=== PATIENT | male | born 1950 | race Caucasian/White ===

== ENCOUNTER 2017-01-12 12:45 | Emergency (ER) | payer SELFPAY ==
[~2017-01-12] VITALS: Ht 185.4 cm; Wt 83.9 kg
[2017-01-12 13:28] LABS: BASO % 0.4 % (0.0-1.0); EOS # 0.9 10*3/uL (0.0-0.4); EOS % 9.2 % (1.0-4.0); HEMATOCRIT 41.7 % (42.0-52.0); HEMOGLOBIN 13.8 g/dl (14.0-18.0); LYMPH # 1.6 10*3/uL (1.3-4.4); LYMPH % 15.9 % (27.0-41.0); MEAN CELL VOLUME 88.7 fl (80.0-94.0); MEAN CORPUSCULAR HGB 29.4 pg (27.0-31.0); MEAN CORPUSCULAR HGB CONC 33.1 g/dl (33.0-37.0); MEAN PLATELET VOLUME 9.3 fl (9.6-12.3); MONO # 0.7 10*3/uL (0.1-1.0); MONO % 7.1 % (3.0-9.0); NEUT # 6.7 10*3/uL (2.3-7.9); NEUT % 67.1 % (47.0-73.0); PLATELET COUNT AUTOMATED 384 10*3/uL (130-400); RED CELL DISTRI WIDTH 14.2 % (0-14.5)
[2017-01-12 13:38] LABS: PROTHROMBIN TIME 10.4 SECONDS (9.0-12.4)
[2017-01-12 13:43] LABS: ALBUMIN 2.7 gm/dl (3.1-4.5); ALKALINE PHOSPHATASE 126 U/L (45-117); BILIRUBIN, TOTAL 0.3 mg/dl (0.2-1.0); BUN 17 mg/dl (7-24); C-REACTIVE PROTEIN 6.55 MG/DL (0-0.3); CARBON DIOXIDE 22 mmol/L (21-32); CHLORIDE 104 mmol/L (98-107); CKMB 0.5 ng/ml (0.5-3.6); CPK 39 U/L (39-308); EST GLOM FILT AFRICAN AMERICAN > 60 ml/min; GLUCOSE 104 mg/dL (65-99); MAGNESIUM 2.1 mg/dL (1.5-2.1); POTASSIUM 4.2 mmol/L (3.5-5.1); SGOT/AST 12 IU/L (3-35); SGPT/ALT 21 U/L (12-78); SODIUM 135 mmol/L (136-145); TOTAL PROTEIN 7.4 gm/dL (6.4-8.2)
[2017-01-12 13:44] LABS: TROPONIN I < 0.015 ng/ml (<0.045)
== END 2017-01-12 17:00 | disposition short-term general hospital (02) ==
LOC: ED 12:45
PROVIDERS: Emergency Medicine
DX: I63.9 Cerebral infarction, unspecified (principal)

== ENCOUNTER 2017-04-28 11:47 | Inpatient (IN) | payer OTHER ==
[~2017-04-28] VITALS: Ht 182.9 cm; Wt 55.5 kg
--- NOTE | ~2017-04-28 | PROC NOTE ---
[place], [place] PROCEDURE NOTE NAME: BROOKS JAMES UNIT #: [id number] ROOM: 411 DOCTOR: JATINDER DIAZ BIRTHDATE: [birth year] DOS: 04/30/2017 PRIMARY PHYSICIAN: Dr. Conteh. RADIOLOGIST: ____. PREVIOUS MEDICAL HISTORY: The patient is a 66-year-old male who presented to [facility] from a [facility] due to staff's observations, the patient demonstrating cough and reduced appetite. Initial concern was for pneumonia; however, chest x-ray revealed no acute infiltrate. Cardiology service was consulted due to concern for myocardial injury. GI service also consulted given patient's history of anemia. The patient's additional medical history includes CVA, HLD, COPD, CAD, HTN, NSTEMI, chronic pain, depression, cachexia and dysphagia. The patient is previously unknown to this [facility] NUR[facility] service. GENERAL COMMENTS: The patient was oriented to self only. He remained awake, alert and cooperative throughout the evaluation, but appeared confused at times. He did not appropriately answer questions regarding his swallowing function, but noted that he had been eating, drinking infrequently. Oral mechanism exam oral facial structures innervated by cranial nerves 5, 7 and 9 through 12 were assessed. Symmetry, strength, coordination, range of motion and accuracy of upper face, labial, lingual and palatal musculature were within functional limits. Unable to assess lower face symmetry given presence of facial hair. Speed of movement was slow, suspect due to cognitive impairments. The patient is edentulous and does not wear dentures. Volitional cough was severely reduced for sharpness. Motor speech exam, the patient's conversational speech was classified by adequate respiration for sentence length utterances, mild breath phonatory quality and normal resident and prosody. Articulatory position was severely reduced with speech comprehensive ability estimated at 50% in a quiet environment. Speech AMRs were produced with rapid rate, reduced precision but adequate rhythm as some wires were uncoordinated with transposition of syllables noted. MBSS METHODS: The patient consumes the following barium impregnated consistencies, thin liquids via straw x 4, nectar thickened liquids via straw x 3, teaspoons of pureed x 2 and ____ solid x 1. 100% feeding assistance was provided. Exam was viewed in the lateral plane. ORAL PHASE: Adequate bolus acceptance with no anterior loss noted. Labial seal, adequate for straw draw. AP bolus transit was timely and adequate. Mastication consisted of an effective matching and solid bolus and was subsequently expectorated, mild to moderate lingual residue noted across consistencies. PHARYNGEAL PHASE: Initiation of the swallow response was generally timely. HLE was reduced in both the anterior and superior planes with subsequently incomplete epiglottic retroflexion. This resulted in penetration during the [place], [place] PROCEDURE NOTE NAME: BROOKS JAMES UNIT #: [id number] ROOM: [facility] DOCTOR: JATINDER DIAZ BIRTHDATE: [birth year] swallow with thin liquids. Penetration was silent and cued cough did not clear contrast. Penetrated thin liquid was then silently aspirated after the swallow, effortful swallow was not effective in reducing penetration/aspiration. The patient tolerated nectar thickened liquids and pureed without penetration/aspiration. Base of tongue to posterior pharyngeal wall contact was reduced resulting in diffuse pharyngeal residue across consistencies. Additional swallows reduced this residue. UES unremarkable. IMPRESSION: The patient presents with moderate oropharyngeal dysphagia classified by inadequate mastication, reduced HLE, and reduced base of tongue to posterior pharyngeal wall contact. Given the patient's pharyngeal weakness, silent aspiration of thin liquids was observed. Compensatory strategies were ineffective in reducing aspiration. Therefore, the patient's restrictive diet is currently dysphagia, pureed with nectar thickened liquids. His aspiration risk factors include the nature of his dysphagia, history of CVA, current mental status, dependence on others for speed assistance and diagnosis of COPD, adherence to precautions below is recommended to reduce this risk. May also consider dysphagia exercise program to promote pharyngeal strength. However, prognosis remains guarded given patient's current mental status and history of dysphagia. 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 RECOMMENDATIONS: 1. Downgrade diet to dysphagia pureed with nectar thickened liquids. 2. One to one feeding assistance. 3. Standard aspiration precautions, fully upright, awake and alert for all p.o. small bites/sips oral care at least b.i.d. 4. Consider dysphagia treatment aimed at increasing pharyngeal strength. 5. Consider communication board as appropriate to promote patient's ability to communicate wants/needs. PLAN OF CARE: We will follow up with the patient to ensure tolerance to diet, promote adherence of aspiration and to trial dysphagia treatment as he remains in house. Thank you for consulting. Please contact the Speech Pathology Department at [phone] with any questions or concerns. [place], [place] PROCEDURE NOTE NAME: JACOBBROOKS E UNIT #: [id number] ROOM: 411 DOCTOR: JATINDER DIAZ BIRTHDATE: [birth year] Jatinder Sanchez CM:PROCNOTE:PROCEDURE NOTE [id number] JATINDER DIAZ
--- NOTE | ~2017-04-28 | CON ---
[place], [place] REPORT OF CONSULTATION NAME: BROOKS JAMES UNIT #: [id number] ROOM: 415 DOCTOR: LUPE JACKSONJAMAL BIRTHDATE: [birth year] DOS: HISTORY OF PRESENT ILLNESS: A 66-year-old patient confused, has presented with difficulty in swallowing as well as he was found to have non-STEMI cardiac insults. The patient according to the nursing staff has difficulty with dysphagia. PAST MEDICAL HISTORY: COPD, coronary artery disease, cachexia, CVA, hyperlipidemia, hypertension, major depression, emaciation and protein calorie malnutrition. PAST SURGICAL HISTORY: None. SOCIAL HISTORY: Smoker, history of alcohol uncertain. FAMILY HISTORY: Noncontributory. ALLERGIES: No known medications. MEDICATIONS: Medication list has been reviewed. He has been on clopidogrel and aspirin. REVIEW OF SYSTEMS: Cannot be reliably obtained from him. He is favorably saying no to all the questions. PHYSICAL EXAMINATION: GENERAL: Reveals extremely emaciated patient, non-grown. HEENT: Head normocephalic, nontraumatic. Mouth and buccal mucosa benign. NECK: Supple, no thyromegaly. CHEST: Symmetric anatomy, COPD pattern. HEART: Normal sinus rhythm, no gallop, no murmur. ABDOMEN: Soft. No hepato-organomegaly. Bowel sounds present. EXTREMITIES: Emaciated muscles, few tattoos. NEUROLOGIC: Alert and orient. The patient cannot be assessed. LABORATORY DATA: His labs and records have been reviewed. His troponin has been elevated. His blood cultures are negative. His latest comprehensive metabolic panel, protein 5.3, albumin 1.0, alkaline phosphatase 186, GOT and GPT within normal limits. Urinalysis unremarkable. CBC: White blood cell 11, H and H of 8 and 28, platelet of 430+. Low iron at 17. The patient with elevated troponin, multiple sessions. Lactic acid of 2.7. PLAN AND DISCUSSION: Due to non-STEMI on recent and acute elevation of troponin. At this stage, we will withhold any investigation of dysphagia through endoscopy. We are going to get a swallow study done and clinical reassessment after the swallow results available. We are going to meanwhile keep him on PPI. [place], [place] REPORT OF CONSULTATION NAME: BROOKS JAMES UNIT #: [id number] ROOM: [facility] DOCTOR: JAMAL ANDRADE MD BIRTHDATE: [birth year] JAMAL ANDRADE MD CM:CONSTR:REPORT OF CONSULTATION 1349 05/01/17 0010 interface
--- NOTE | ~2017-04-28 | CON ---
[place], [place] REPORT OF CONSULTATION NAME: BROOKS JAMES UNIT #: [id number] ROOM: 415 DOCTOR: ESTELA MULLEN ED.D (PEPE) BIRTHDATE: [birth year] DOS: 04/29/2017 HISTORY OF PRESENT ILLNESS: The patient is a 66-year-old male referred for competency evaluation. At the present time, this patient is in the intensive care unit at [facility]. He is also a resident at [facility] here in [place]. His medical history is pertinent for depression, hypertension, COPD, atherosclerosis, coronary artery disease, history of CVA, chronic pain and vitamin D deficiency. This patient's medications include aspirin, Coreg, Plavix, Remeron, Lipitor, Zestril, fluoxetine and vitamin D3. This patient was awake and alert and oriented only to person. He could not tell me where he is because he does have aphasia. He still had a great deal of difficulty communicating any information about himself. It is clear that he is not competent to make informed healthcare decisions and all decision should be made by his healthcare power of application project leader or his healthcare surrogate, most likely a family member or next of kin. 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 RECOMMENDATIONS: The patient's next of kin or power of application project leader for healthcare should be making all healthcare decisions. Thank you very much for this consultation. ESTELA MULLEN ED.D CM:CONSTR:REPORT OF CONSULTATION 1437 04/29/17 2114 interface
[2017-04-28 11:57] VITALS: BP 110/60
[2017-04-28] MEDS ORDERED: ACETAMINOPHEN325 M2 PO (12:04)
[2017-04-28] MEDS ORDERED: ASPIRIN CHEWABL81 MG PO (12:05)
[2017-04-28] MEDS ORDERED: APLISOL5 TUB UNIT IC (12:05)
[2017-04-28] MEDS ORDERED: LIPITOR40 MG PO (12:06)
[2017-04-28] MEDS ORDERED: COREG3.125 MG PO (12:06)
[2017-04-28] MEDS ORDERED: REMERON15 M2 PO (12:07)
[2017-04-28] MEDS ORDERED: PLAVIX75 M1 PO (12:07)
[2017-04-28 12:25] LABS: BASO % 0.2 % (0.0-1.0); EOS # 0.4 10*3/uL (0.0-0.4); EOS % 2.7 % (1.0-4.0); HEMATOCRIT 32.9 % (42.0-52.0); HEMOGLOBIN 10.2 g/dl (14.0-18.0); LYMPH # 0.8 10*3/uL (1.3-4.4); MEAN CELL VOLUME 85.5 fl (80.0-94.0); MEAN CORPUSCULAR HGB 26.5 pg (27.0-31.0); MEAN PLATELET VOLUME 9.1 fl (9.6-12.3); MONO # 0.3 10*3/uL (0.1-1.0); MONO % 2.2 % (3.0-9.0); NEUT # 13.7 10*3/uL (2.3-7.9); PLATELET COUNT AUTOMATED 559 10*3/uL (130-400); RED BLOOD COUNT 3.85 10*6/uL (4.50-5.90); RED CELL DISTRI WIDTH 17.6 % (0-14.5); WHITE BLOOD COUNT 15.4 10*3/uL (4.8-10.8)
[2017-04-28 12:41] LABS: ALBUMIN 1.2 gm/dl (3.1-4.5); ALKALINE PHOSPHATASE 247 U/L (45-117); BUN 43 mg/dl (7-24); CHLORIDE 101 mmol/L (98-107); CREATININE 1.13 mg/dL (0.70-1.30); LIPASE 140 U/L (73-393); MAGNESIUM 2.3 mg/dL (1.5-2.1); POTASSIUM 4.3 mmol/L (3.5-5.1); SGOT/AST 48 IU/L (3-35); SGPT/ALT 43 U/L (12-78); SODIUM 135 mmol/L (136-145); TOTAL PROTEIN 6.3 gm/dL (6.4-8.2)
[2017-04-28 12:43] LABS: TROPONIN I 0.711 ng/ml (<0.045)
[2017-04-28 14:15] LABS: BILIRUBIN NEGATIVE (NEGATIVE); BLOOD NEGATIVE (NEGATIVE); CLARITY CLEAR (CLEAR); COLOR YELLOW (YELLOW); GLUCOSE NEGATIVE (NEGATIVE); KETONE NEGATIVE (NEGATIVE); LEUKO ESTERASE NEGATIVE (NEGATIVE); NITRITE NEGATIVE (NEGATIVE); PH 5.5 (5.0-9.0); SPECIFIC GRAVITY 1.025 (1.005-1.030)
[2017-04-28 14:38] LABS: BACTERIA TRACE
[2017-04-28 15:00] VITALS: BP 106/80
--- NOTE | 2017-04-28 15:10 | NUR ---
DR JASMINE NOTIFIED OF NEW CONSULT ORDER.
[2017-04-28 15:45] VITALS: BP 106/67
--- NOTE | 2017-04-28 15:45 | NUR ---
A 66, admitted to ICCU, under the services of ROGERS Noguera DO with a diagnosis of NSTEMI. Chief complaint is ARRIVAL FROM [facility] w/ c/o cough and decreased appetite. Patient arrived via stretcher from ER. Monitor applied. Initial assessment completed. Vital signs taken and recorded. ROGERS NOGUERA DO notified of admission to the unit. Orders received. See assessment for past medical history, medications and allergies. Patient oriented to unit. Clothing/patient valuable form completed. pt. stated he was unable to sign any forms and arrived w/ no monserrats GIGI CAICEDO
[2017-04-28 15:52] VITALS: BP 112/58
[2017-04-28] MEDS ORDERED: ZESTRIL2.5 MG PO (16:08)
[2017-04-28] MEDS ORDERED: LIPITOR80 MG PO (16:08)
[2017-04-28] MEDS ORDERED: FLUOXETINE40 MG PO (16:09)
[2017-04-28] MEDS ORDERED: VITAMIN D34000 UNIT PO (16:10)
--- NOTE | 2017-04-28 18:46 | NUR ---
24 HR chart check completed.
[2017-04-28 20:00] VITALS: BP 93/60
--- NOTE | 2017-04-28 21:25 | NUR ---
DR. OLIVERA IN ICCU. NOTIFIED OF CRITICAL TROPONIN. NO NEW ORDERS. PATIENT ASYMPTOMATIC.
[2017-04-28 23:54] VITALS: BP 89/53
[2017-04-29 04:30] VITALS: BP 84/52
[2017-04-29 04:36] LABS: BASO % 0.1 % (0.0-1.0); EOS # 0.5 10*3/uL (0.0-0.4); EOS % 3.7 % (1.0-4.0); HEMATOCRIT 27.7 % (42.0-52.0); HEMOGLOBIN 8.8 g/dl (14.0-18.0); LYMPH # 0.8 10*3/uL (1.3-4.4); LYMPH % 5.9 % (27.0-41.0); MEAN CORPUSCULAR HGB CONC 31.8 g/dl (33.0-37.0); MEAN PLATELET VOLUME 8.9 fl (9.6-12.3); MONO # 0.3 10*3/uL (0.1-1.0); MONO % 2.2 % (3.0-9.0); NEUT # 11.9 10*3/uL (2.3-7.9); NEUT % 87.2 % (47.0-73.0); PLATELET COUNT AUTOMATED 466 10*3/uL (130-400); RED BLOOD COUNT 3.26 10*6/uL (4.50-5.90); RED CELL DISTRI WIDTH 17.3 % (0-14.5); WHITE BLOOD COUNT 13.6 10*3/uL (4.8-10.8)
[2017-04-29 04:46] LABS: ACT PARTIAL THROMBO TIME 25.5 SECONDS (20.8-31.5); INTERNATIONAL NORM RATIO 1.2 (2.0-3.5)
[2017-04-29 04:55] LABS: CHLORIDE 107 mmol/L (98-107); POTASSIUM 4.1 mmol/L (3.5-5.1); SODIUM 137 mmol/L (136-145)
[2017-04-29 05:00] LABS: ALKALINE PHOSPHATASE 205 U/L (45-117); BUN 33 mg/dl (7-24); CREATININE 0.92 mg/dL (0.70-1.30); PHOSPHOROUS 3.3 mg/dL (2.5-4.9); SGOT/AST 33 IU/L (3-35); SGPT/ALT 31 U/L (12-78); TOTAL PROTEIN 5.3 gm/dL (6.4-8.2); TRIGLYCERIDES 77 mg/dl (<150); VLDL CHOLESTEROL 15 mg/dL (6-40)
[2017-04-29 05:08] LABS: LDL CHOLESTEROL 41 mg/dL (9-159)
[2017-04-29 05:09] LABS: CHOLESTEROL 77 mg/dL (<200); HDL CHOLESTEROL 21 mg/dl (40-60)
[2017-04-29 06:03] VITALS: BP 99/68
--- NOTE | 2017-04-29 06:13 | NUR ---
PATIENT IS A NO VOID THIS SHIFT. BLADDER SCANNED FOR 371ML. DR. OLIVEAR NOTIFIED. NEW ORDER RECEIVED FOR STRAIGHT CATH.
--- NOTE | 2017-04-29 07:14 | NUR ---
Shift chart check completed.24 HR chart check completed.
[2017-04-29] MEDS ORDERED: PRO-STAT 64 3030 M2 PO (07:30)
[2017-04-29] MEDS ORDERED: DULCOLAX10 M1 R (07:32)
[2017-04-29] MEDS ORDERED: MILK OF MA400 MG/51 PO (07:35)
[2017-04-29 07:37] LABS: VITAMIN D, 25-HYDROXY 25.6 ng/mL (30-100)
[2017-04-29 08:00] VITALS: BP 100/70; BP 111/69
--- NOTE | 2017-04-29 08:55 | NUR ---
ON ASSESSMENT PATIENT IS RESTING COMFORTABLY WITH NO VOICED COMPLAINTS. HE HAS A DEGREE OF EXPRESSIVE APHASIA, THAT HE HAS SOME REPETITIVE PHRASES AND MUMBLED SPEECH. ECHO HAS BEEN DONE AT THE BEDSIDE. DR JASMINE HAS VISITED. SEE ALL APPROPRIATE INTERVENTIONS.
--- NOTE | 2017-04-29 09:09 | NUR ---
Patient comes from [facility], will check for any return needs.
[2017-04-29 12:00] VITALS: BP 99/75
--- NOTE | 2017-04-29 12:40 | NUR ---
PT UP IN RECLINER CHAIR, WANTING TO GO BACK TO BED.
--- NOTE | 2017-04-29 13:00 | NUR ---
Pt would not eat until I got him back in bed. "No,no,no".
--- NOTE | 2017-04-29 13:34 | NUR ---
DR PEPE MULLEN NOTIFIED OF CONSULT FOR COMPETENCY EVAL.
--- NOTE | 2017-04-29 14:31 | NUR ---
DR PEPE MULLEN HAS BEEN IN TO EVALUATE PT. HE WILL DICTATE HIS CONSULTATION.
[2017-04-29 15:16] LABS: IRON 17 ug/dL (65-175); TOTAL IRON BINDING CAPACITY 152 ug/dl (250-450)
[2017-04-29 16:00] VITALS: BP 103/66
--- NOTE | 2017-04-29 16:35 | NUR ---
ATTEMPTED TO CALL DR ANDRADE'S CELL PHONE FOR NEW CONSULT. LET BRIEF VOICEMAIL.
--- NOTE | 2017-04-29 16:42 | NUR ---
DR ANDRADE CALLED ME BACK. REVIEWED PT'S HISTORY, HIS LABS AND CURRENT RX. ORDERS RECEIVED.
--- NOTE | 2017-04-29 17:27 | NUR ---
MONITOR REMOVED PER ORDER TO TRANSFER TO UN-MONITORED BED, VERIFIED WITH DR ZUÑIGA.
--- NOTE | 2017-04-29 20:02 | NUR ---
1942 RESTING IN BED WITHOUT C/O'S. HOB ELEVATED. SIDE RAILS UP X'S 2. IV FLUIDS CONT. NO DISTRESS NOTED. SPEECH IS GARBLED. SKIN W/D. RESPIRATIONS EASY,
--- NOTE | 2017-04-29 21:00 | NUR ---
PT RECEIVED IN ROOM FROM ICU. ASSESSMENT COMPLETE. PT STABLE. CALL LIGHT PROVIDED FOR ASSISTANCE.
--- NOTE | 2017-04-29 21:00 | NUR ---
TRANSFERRED TO [facility] VIA BED WITH BELONGINGS. REPORT GIVEN TO IN PT RN. IV FLUIDS CONT. URINAL AT BEDSIDE.
[2017-04-30] VITALS: BP 91/56
[2017-04-30 06:24] LABS: BASO % 0.3 % (0.0-1.0); EOS # 0.5 10*3/uL (0.0-0.4); EOS % 4.9 % (1.0-4.0); HEMATOCRIT 28.2 % (42.0-52.0); HEMOGLOBIN 8.7 g/dl (14.0-18.0); LYMPH # 0.7 10*3/uL (1.3-4.4); MEAN CELL VOLUME 85.5 fl (80.0-94.0); MEAN CORPUSCULAR HGB 26.4 pg (27.0-31.0); MEAN CORPUSCULAR HGB CONC 30.9 g/dl (33.0-37.0); MEAN PLATELET VOLUME 9.2 fl (9.6-12.3); MONO # 0.3 10*3/uL (0.1-1.0); MONO % 2.7 % (3.0-9.0); NEUT # 9.3 10*3/uL (2.3-7.9); NEUT % 85.3 % (47.0-73.0); PLATELET COUNT AUTOMATED 434 10*3/uL (130-400); RED CELL DISTRI WIDTH 17.4 % (0-14.5)
[2017-04-30 06:55] LABS: ALKALINE PHOSPHATASE 186 U/L (45-117); CHLORIDE 110 mmol/L (98-107); CREATININE 0.84 mg/dL (0.70-1.30); POTASSIUM 3.9 mmol/L (3.5-5.1); SGOT/AST 26 IU/L (3-35); SGPT/ALT 25 U/L (12-78); SODIUM 139 mmol/L (136-145); TOTAL PROTEIN 5.3 gm/dL (6.4-8.2)
[2017-04-30 06:59] LABS: BUN 20 mg/dl (7-24)
[2017-04-30 08:00] VITALS: BP 92/56
--- NOTE | 2017-04-30 10:55 | NUR ---
MEDICATED PO ORDERED PER PT REQUEST WITH [facility] FOR C/O LEFT HEEL PAIN. SEE EMAR.
--- NOTE | 2017-04-30 12:00 | NUR ---
WHEN QUESTIONED IF PAIN MEDICATIONS WERE EFFECTIVE, PT NODS HEAD "YES" DOZING INTERMITTENTLY.
--- NOTE | 2017-04-30 13:22 | NUR ---
DR ANDRADE IN TO SEE PT & MADE AWARE OF THIS RN'S CONCERN REGARDING POSSIBLE ASPIRATION RISK.
--- NOTE | 2017-04-30 13:53 | NUR ---
Patient from [facility] and can return when medically stable for discharge.
--- NOTE | 2017-04-30 14:19 | NUR ---
Nutritional Support Services Note: Pt is underweight with severe protein calorie malnutrition noted. Appetite is poor, he requires assist and encouragement to eat. He receives a regular diet as ordered with Boost po TID. Ht.6' Wt.122# BMI-16.5 underweight. Recommend diet change to regular with Boost as ordered. Will follow as needed. Ira Harkins
[2017-04-30 16:00] VITALS: BP 88/62
--- NOTE | 2017-04-30 16:00 | NUR ---
SPEECH PATHOLOGY PER PHYSICIAN ORDERS, A MODIFIED BARIUM SWALLOW STUDY WAS COMPLETED THIS AFTERNOON. THIS EXAM INCLUDED A BRIEF INTERVIEW AND ORAL MECHANISM EXAM AND AN INSTRUMENTAL SWALLOWING EVALUATION. IN BRIEF, PATIENT DEMONSTRATED REDUCED HLE RESULTING IN PENETRATION AND ASPIRATION OF THIN LIQUIDS. PENETRATION/ASPIRATION WAS SILENT AND CUED COUGH DID NOT CLEAR. PATIENT TOLERATED NECTAR-THICKENED LIQUIDS AND PUREE WITHOUT ASPIRATION. COARSE SOLIDS WERE ALSO TRIALED. PATIENT'S MASTICATION OF SOLIDS WAS INEFFECTIVE AND HE SUBSEQUENTLY EXPECTORATED UNCHEWED BOLUS. IMPRESSIONS: PATIENT PRESENTS WITH MODERATE OROPHARYNGEAL DYSPHAGIA C/B INEFFECTIVE MASTICATION OF SOLIDS, REDUCED HLE RESULTING IN ASPIRATION OF THIN LIQUIDS, AND REDUCED BOT-PPW CONTACT RESULTING IN DIFFUSE PHARYNGEAL RESIDUE. GIVEN THESE FINDINGS, PATIENT'S LEAST RESTRICTIVE DIET IS CURRENTLY PUREED FOODS WITH NECTAR-THICKENED LIQUIDS. WILL CONSIDER DYSPHAGIA TREATMENT TARGETING IMPROVING STRENGTH OF PHARYNGEAL MUSCULATURE; HOWEVER, PROGNOSIS REMAINS GUARDED GIVEN CURRENT COGNTIIVE STATUS AND HISTORY OF DYSPHAGIA. RECOMMENDATIONS: 1. DOWNGRADE DIET TO PUREED FOODS WITH NECTAR-THICKENED LIQUIDS. 2. 1:1 FEEDING ASSISTANCE 3. STANDARD ASPIRATION PRECAUTIONS: FULLY UPRIGHT, AWAKE, AND ALERT FOR ALL PO, SMALL BITES/SIPS, ORAL CARE AT LEAST BID. 4. CONSIDER DYSPHAGIA EXERCISES TARGETING IMPROVING PHARYNGEAL STRENGTH; HOWEVER PROGNOSIS REMAINS GUARDED GIVEN PATIENT'S CURRENT COGNITIVE STATUS AND HISTORY OF DYSPHAGIA. POC: WILL FOLLOW-UP WITH PATIENT TO ENSURE TOLERANCE TO DIET, PROMOTE ASPIRATION PRECAUTIONS, AND TRIAL DYSPAHGIA TREATMENT. FULL DICTATED REPORT TO FOLLOW. THANK YOU FOR THIS REFERRAL. JATINDER NAILS, [facility]-INVENTORY CONTROL CLERK
--- NOTE | 2017-04-30 16:15 | NUR ---
VANE SIMS NURSE DIRECTOR CALLED TO ARRANGE A PEER TO PEER AND THE INSURANCE COMPANY SAID THE DATES DID NOT MATCH AND THE PATIENT WOULD HAVE TO CALL TO FIX THE ISSUE IF THEY WERE WRONG. THE PATIENT HAS BEEN DEEMED INCOMPETENT TO MAKE DECISIONS AT THIS TIME SO THE SON JULIO GARRISON WAS CALLED AT [phone]. HE VERIFIED THAT WE HAD THE CORRECT INFORMATION (1950) AND THAT THE INSURANCE COMPANY HAS HIM LISTED 54. HE ALSO SAID THAT HE HAS ALREADY TRIED TO CORRECT THIS BUT THAT HE WILL CALL THEM AGAIN [facility] TO TRY AND GET THEM TO CORRECT IT. SHAWNA SIMS RN, NURSE DIRECTOR FOR [facility]
--- NOTE | 2017-04-30 17:13 | NUR ---
DR ZUÑIGA NOTIFIED OF BARIUM SWALLOW RESULTS, NEW ORDERS RECEIVED.
--- NOTE | 2017-04-30 19:02 | NUR ---
REPOSITIONED FOR COMFORT & TO RELIEVE PRESSURE AREAS. BEDALARM FOR PT SAFETY.
[2017-04-30 20:00] VITALS: BP 85/50
--- NOTE | 2017-04-30 20:00 | NUR ---
RESTING IN BED. SPEECH DIFFICULTY TO UNDERSTAND. IV FLUIDS INFUSING INTO LEFT ARM WITHOUT DIFFICULTY; SITE ASYMPTOMATIC. LUNGS DIMINISHED BILATERALLY WITH AN OCCASIONAL DRY COUGH NOTED AT THIS TIME. NO DISTRESS NOTED; WILL CONTINUE TO MONITOR. CALL LIGHT WITHIN REACH.
[2017-05-01] VITALS: BP 99/58
[2017-05-01 06:14] LABS: BASO % 0.2 % (0.0-1.0); EOS # 0.6 10*3/uL (0.0-0.4); HEMATOCRIT 27.1 % (42.0-52.0); HEMOGLOBIN 8.3 g/dl (14.0-18.0); LYMPH # 0.7 10*3/uL (1.3-4.4); LYMPH % 7.4 % (27.0-41.0); MEAN CELL VOLUME 85.8 fl (80.0-94.0); MEAN CORPUSCULAR HGB 26.3 pg (27.0-31.0); MEAN CORPUSCULAR HGB CONC 30.6 g/dl (33.0-37.0); MEAN PLATELET VOLUME 10.4 fl (9.6-12.3); MONO # 0.3 10*3/uL (0.1-1.0); MONO % 3.1 % (3.0-9.0); NEUT # 7.9 10*3/uL (2.3-7.9); NEUT % 82.8 % (47.0-73.0); PLATELET COUNT AUTOMATED 463 10*3/uL (130-400); RED BLOOD COUNT 3.16 10*6/uL (4.50-5.90); RED CELL DISTRI WIDTH 17.6 % (0-14.5); WHITE BLOOD COUNT 9.5 10*3/uL (4.8-10.8)
[2017-05-01 06:50] LABS: BUN 17 mg/dl (7-24); CHLORIDE 111 mmol/L (98-107); POTASSIUM 3.8 mmol/L (3.5-5.1); SODIUM 138 mmol/L (136-145)
[2017-05-01 08:00] VITALS: BP 88/54
[2017-05-01] MEDS ORDERED: FEROSUL325 MG PO (11:43)
[2017-05-01 12:00] VITALS: BP 111/72
[2017-05-01 16:00] VITALS: BP 101/73
[2017-05-01 16:09] LABS: LEGIONELLA URINARY ANTIGEN Negative (Negative)
[2017-05-01 20:00] VITALS: BP 98/60
--- NOTE | 2017-05-01 21:34 | NUR ---
MEDICATED WITH TYLENOL FOR ELEVATED TEMPERATURE. PT. REFUSES TO TAKE ANY OTHER PO MEDICATIONS.
[2017-05-02] VITALS: BP 93/52
--- NOTE | 2017-05-02 | NUR ---
TYLENOL GIVEN EARLIER EFFECTIVE.
[2017-05-02 06:36] LABS: BASO % 0.3 % (0.0-1.0); EOS # 0.5 10*3/uL (0.0-0.4); HEMATOCRIT 27.6 % (42.0-52.0); HEMOGLOBIN 8.7 g/dl (14.0-18.0); LYMPH # 0.6 10*3/uL (1.3-4.4); LYMPH % 5.1 % (27.0-41.0); MEAN CELL VOLUME 85.2 fl (80.0-94.0); MEAN CORPUSCULAR HGB 26.9 pg (27.0-31.0); MEAN CORPUSCULAR HGB CONC 31.5 g/dl (33.0-37.0); MONO # 0.3 10*3/uL (0.1-1.0); MONO % 2.5 % (3.0-9.0); NEUT # 9.4 10*3/uL (2.3-7.9); NEUT % 86.4 % (47.0-73.0); PLATELET COUNT AUTOMATED 435 10*3/uL (130-400); RED BLOOD COUNT 3.24 10*6/uL (4.50-5.90); RED CELL DISTRI WIDTH 17.5 % (0-14.5); WHITE BLOOD COUNT 10.8 10*3/uL (4.8-10.8)
[2017-05-02 07:10] LABS: BUN 12 mg/dl (7-24); CHLORIDE 111 mmol/L (98-107); CREATININE 0.71 mg/dL (0.70-1.30); POTASSIUM 3.6 mmol/L (3.5-5.1); SODIUM 138 mmol/L (136-145)
[2017-05-02 08:00] VITALS: BP 112/74
[2017-05-02] MEDS ORDERED: LEVAQUIN500 M2 PO (09:02)
--- NOTE | 2017-05-02 09:46 | NUR ---
REFUSING AM MEDICATIONS AND PICTURES OF WOUND. TOOL CRIB ATTENDANT AWARE.
[2017-05-02 12:49] LABS: CKMB 1.9 ng/ml (0.5-3.6)
--- NOTE | 2017-05-02 12:55 | NUR ---
[facility] Discharge instructions reviewed with patient/family. Patient receptive and verbalizes understanding. Follow-up care arranged. Written instructions given to patient/family. ARMAND MORGAN
== END 2017-05-02 12:55 | disposition home or self-care (01) | DRG 280 ==
LOC: ED 11:47 → ICCU 14:26 → EDHOLD 14:26 → ICCU 14:29 → 4E 04-29 20:50
PROVIDERS: Internal Medicine; Internal Medicine Cardiovascular Disease; Internal Medicine Nephrology; ADMIT Internal Medicine
PROC: BD1BYZZ Fluoroscopy of Mouth/Oropharynx using Other Contrast (ICD-10-PCS; principal; 2017-04-30)
DX: I21.4 Non-ST elevation (NSTEMI) myocardial infarction (principal); J15.6 Pneumonia due to other Gram-negative bacteria; E43 Unspecified severe protein-calorie malnutrition; E87.1 Hypo-osmolality and hyponatremia; R13.10 Dysphagia, unspecified; J44.0 Chronic obstructive pulmonary disease with (acute) lower respiratory infection; F01.50 Vascular dementia, unspecified severity, without behavioral disturbance, psychotic disturbance, mood disturbance, and anxiety; F33.9 Major depressive disorder, recurrent, unspecified; Z68.1 Body mass index [BMI] 19.9 or less, adult; E86.0 Dehydration; D64.9 Anemia, unspecified; D47.3 Essential (hemorrhagic) thrombocythemia; R73.9 Hyperglycemia, unspecified; E78.5 Hyperlipidemia, unspecified; G89.29 Other chronic pain; I10 Essential (primary) hypertension; I25.10 Atherosclerotic heart disease of native coronary artery without angina pectoris; J44.9 Chronic obstructive pulmonary disease, unspecified; Z79.82 Long term (current) use of aspirin; Z79.899 Other long term (current) drug therapy; I69.319 Unspecified symptoms and signs involving cognitive functions following cerebral infarction

== ENCOUNTER 2017-05-05 11:16 | Inpatient (IN) | payer OTHER ==
[~2017-05-05] VITALS: Ht 172.7 cm; Wt 56.9 kg
--- NOTE | ~2017-05-05 | ST ---
[place], [place] EXERCISE STRESS TEST REPORT [id number] UNIT #: [id number] ROOM: 422 DOCTOR: JOHN YEAGER MD BIRTHDATE: [birth year] DOS: 05/06/2017 REFERRING PHYSICIAN: Dr. Panchal. INDICATION: Abnormal troponin, preoperative, for stratification. The patient underwent standard protocol Lexiscan stress EKG. The patient's baseline EKG shows normal sinus with nonspecific ST-T wave changes. The patient tolerated the procedure well. The patient's baseline heart rate was 86 with blood pressure was 118/80. The patient's peak heart rate shows 97 with a blood pressure 102/70. The patient had no overt chest pain or anginal symptoms. The patient had no EKG changes. No arrhythmias. SUMMARY OF FINDINGS: Unremarkable Lexiscan stress EKG. Please see separate report for perfusion scan results. JOHN YEAGER MD CM:STRESS:EXERCISE STRESS TEST REPORT [id number] JOHN YEAGER MD
--- NOTE | ~2017-05-05 | O ---
[place], [place] OPERATIVE NOTE NAME: BROOKS JAMES UNIT #: [id number] ROOM: 422 DOCTOR: JAMAL ANDRADE MD BIRTHDATE: [birth year] DOS: HISTORY OF PRESENT ILLNESS: A 66-year-old patient who presented with chief complaint of extracted hematemesis, upper GI bleed from skilled nursing. The patient had to be admitted for evaluation. The patient had a panel of workup done and his H and H periodically reassessed and H and H of 9 and 29 was his average H and H. His latest H and H has been 9 and 29. Again, platelet function assay was reviewed. Latest H and H has been stable. He has been observed on the floor with concern of hematemesis and aspirin kept on hold. Platelet function test has been assessed. PAST MEDICAL HISTORY: Dysphagia, CVA, hyperlipidemia, hypertension, non-STEMI myocardial infarction, protein malnutrition. PAST SURGICAL HISTORY: None. SOCIAL HISTORY: Smoker, nonalcohol consumer. FAMILY HISTORY: Noncontributory. ALLERGIES: No known. MEDICATIONS: Medication list has been reviewed including clopidogrel and aspirin. PROCEDURE: Today's procedure part of investigation of hematemesis is panendoscopy plus photographic series. PREMEDICATION: Versed and Diprivan. SCOPE: Olympus forward-viewing gastroscope Q10 video. REPORT: After putting the patient in left lateral position and application of lubricant to the scope, the scope was introduced. Thereafter, under direct visualization, I advanced through the length of esophagus without difficulty. Small hiatal hernia was noticed. Gastric pouch was entered. Mild gastritis was seen. Duodenal bulb, second and third part within normal limit. No active bleeding seen. The patient extubated, tolerated the procedure well. IMPRESSION: Gastritis, small hiatal hernia. PLAN AND DISCUSSION: Continuation with Protonix 40 mg daily. On the other hand, resumption of feeding and he has history of non-STEMI myocardial infarction. Therefore, he needs to be back on his anticoagulants and antiplatelets. We will proceed with the above. [place], [place] OPERATIVE NOTE NAME: BROOKS JAMES UNIT #: [id number] ROOM: 422 DOCTOR: JAMAL ANDRADE MD BIRTHDATE: [birth year] JAMAL ANDRADE MD CM:MODESTA:OPERATIVE NOTE 1524 2101 JAMAL ANDRADE MD 05/07/17 2252 interface
--- NOTE | ~2017-05-05 | PR ---
[place], [place] PROGRESS NOTE NAME: [id number] UNIT #: [id number] ROOM: 422 DOCTOR: NEO JASMINE MD BIRTHDATE: [birth year] DOS: 05/10/2017 SUBJECTIVE: The patient was seen at his bedside today 05/10/2017 for followup of his elevated troponin levels and abnormal stress test. He is a 66-year-old man who is a poor historian. He is a long term resident. He presented to the hospital because of coffee-ground emesis and a GI bleed. In the emergency room, his electrocardiogram showed no acute changes, but his troponins did rise to a peak of 0.626. He was felt to have a type 2 myocardial injury from his GI bleeding. A pharmacologic myocardial perfusion study on 05/06/2017 showed evidence for a small mildly reversible defect in the inferior wall consistent with ischemia, ejection fraction was 70%. It was felt that he did show signs of coronary artery disease, but that his prognosis was good and that he could be treated medically. He subsequently did undergo endoscopy without cardiac complications. He is being treated medically for gastritis and small hiatal hernia. He is eating well now and has no further complaints. As I entered his room today, he was coughing, but told me that he otherwise felt well. PHYSICAL EXAMINATION: VITAL SIGNS: Today, his pulse is 78 and regular, blood pressure is 118/73. He is afebrile. He weighs 56.9 kg and has a body mass index of 19.1. NECK: Supple. He has no jugular distention. Carotids are full without bruits. LUNGS: Respirations are unlabored at rest, but he does have marked expiratory prolongation with scattered wheezes bilaterally. He has no presacral edema. HEART: Has a regular rhythm with an S4 gallop, but no S3 or murmur. The PMI is not displaced. ABDOMEN: Soft and normally active. EXTREMITIES: Showed no edema. Pedal pulses are diminished, but palpable. IMPRESSION: 1. Upper gastrointestinal bleed due to gastritis and hiatal hernia. The patient is being managed medically. 2. Non-ST elevation myocardial infarction. 3. Abnormal stress test demonstrating a small area of inferior ischemia. The patient is being treated medically. 4. Mental status changes. The patient does have a history of a stroke in December 2016. 5. History of hypertension. 6. History of major depressive disorder. 7. Malnutrition. 8. Remote history of cigarette abuse. PLAN: No other cardiac workup is planned at this time. The patient appears to be stable on his current regimen, which includes amongst other drugs, aspirin, Plavix, carvedilol 3.125 mg b.i.d., atorvastatin 80 mg daily. We will sign off his care for now, but remain available to see him as needed. I thank the hospitalist physicians for asking our advice regarding his care. [place], [place] PROGRESS NOTE NAME: BROOKS JAMES UNIT #: [id number] ROOM: 422 DOCTOR: NEO JASMINE MD BIRTHDATE: [birth year] NEO JASMINE MD CM:[id number] NEO JASMINE MD 05/10/17 1553 interface
[~2017-05-05 11:16] MED LIST: ACETAMINOPHEN325 M2 PO; APLISOL5 TUB UNIT IC; ASPIRIN CHEWABL81 MG PO; COREG3.125 MG PO; DULCOLAX10 M1 R; FEROSUL325 MG PO; FLUOXETINE40 MG PO; LEVAQUIN500 M2 PO; LIPITOR40 MG PO; LIPITOR80 MG PO; MILK OF MA400 MG/51 PO; PLAVIX75 M1 PO; PRO-STAT 64 3030 M2 PO; REMERON15 M2 PO; VITAMIN D34000 UNIT PO; ZESTRIL2.5 MG PO
[2017-05-05 11:42] VITALS: BP 155/74
--- NOTE | 2017-05-05 11:47 | NUR ---
PATIENT HAS BANDAID NOTED TO LEFT UPPER ARM.
[2017-05-05 11:58] LABS: BASO % 0.2 % (0.0-1.0); EOS # 0.5 10*3/uL (0.0-0.4); EOS % 5.1 % (1.0-4.0); HEMATOCRIT 29.1 % (42.0-52.0); HEMOGLOBIN 9.2 g/dl (14.0-18.0); LYMPH # 0.9 10*3/uL (1.3-4.4); LYMPH % 9.6 % (27.0-41.0); MEAN CELL VOLUME 83.4 fl (80.0-94.0); MEAN CORPUSCULAR HGB 26.4 pg (27.0-31.0); MEAN CORPUSCULAR HGB CONC 31.6 g/dl (33.0-37.0); MEAN PLATELET VOLUME 9.3 fl (9.6-12.3); MONO # 0.3 10*3/uL (0.1-1.0); NEUT # 7.9 10*3/uL (2.3-7.9); NEUT % 81.7 % (47.0-73.0); PLATELET COUNT AUTOMATED 425 10*3/uL (130-400); RED BLOOD COUNT 3.49 10*6/uL (4.50-5.90); WHITE BLOOD COUNT 9.6 10*3/uL (4.8-10.8)
[2017-05-05 12:07] LABS: INTERNATIONAL NORM RATIO 1.4 (2.0-3.5)
[2017-05-05 12:13] LABS: ALKALINE PHOSPHATASE 207 U/L (45-117); BUN 15 mg/dl (7-24); CHLORIDE 105 mmol/L (98-107); CREATININE 0.72 mg/dL (0.70-1.30); LIPASE 79 U/L (73-393); POTASSIUM 3.5 mmol/L (3.5-5.1); SGOT/AST 23 IU/L (3-35); SGPT/ALT 18 U/L (12-78); SODIUM 137 mmol/L (136-145); TOTAL PROTEIN 5.5 gm/dL (6.4-8.2)
--- NOTE | 2017-05-05 12:45 | NUR ---
PT LAYING IN BED SLEEPING AROUSES EASILY. RESPS EASY NONLABORED. VSS. WILL CONTINUE TO MONITOR.
[2017-05-05 13:56] VITALS: BP 108/68
--- NOTE | 2017-05-05 14:03 | NUR ---
REPORT CALLED TO TARA RN AT THIS TIME. PATIENT TAKEN TO 4TH FLOOR AT THIS TIME BY THIS NURSE.
--- NOTE | 2017-05-05 14:12 | NUR ---
TARA RN AT BEDSIDE WITH PATIENT AT THIS TIME.
[2017-05-05 14:35] VITALS: BP 154/91
--- NOTE | 2017-05-05 14:45 | NUR ---
TAZ IN ROOM TO SEE PTMyke
--- NOTE | 2017-05-05 15:58 | NUR ---
CALLED TAZ GARVEY FOR CRITICAL TROPONIN AND NOTIFED HOME MEDS ARE VERIFIED AND NEED WOUND CARE ORDER FOR SKIN TEAR.
[2017-05-05 16:00] VITALS: BP 115/71
[2017-05-05 16:10] VITALS: BP 136/58
--- NOTE | 2017-05-05 16:25 | NUR ---
DR. ANDRADE MADE AWARE OF CONSULT. ORDERS REVIEWED AND VERIFIED.
[2017-05-05 18:10] LABS: HEMATOCRIT 32.4 % (42.0-52.0); HEMOGLOBIN 10.2 g/dl (14.0-18.0)
--- NOTE | 2017-05-05 18:30 | NUR ---
CALLED AND LEFT A MESSAGE WITH DR. ANDRADE WITH RESULTS OF H+H.
--- NOTE | 2017-05-05 18:38 | NUR ---
DR. GARVEY NOTIFIED ABOUT THE CRITICAL TROPONIN RESULT. NO NEW ORDERS AT THIS TIME.
--- NOTE | 2017-05-05 18:51 | NUR ---
PATIENT IS RESTING COMFORTABLY IN BED. PATIENT DENIES ANY PAIN OR DISCOMFORT. PATIENT HAS THE BED ALARM ACTIVATED AND IN LOWEST POSITION, CALL LIGHT IS WITHIN . SEE SHIFT ASSESSMENT.
--- NOTE | 2017-05-05 19:14 | NUR ---
DR. ANDRADE NOTIFIED OF 1800 H&H RESULTS. CONTACT LUPE IN THE MORNING WITH H&H RESULTS.
[2017-05-05 20:00] VITALS: BP 106/69
[2017-05-06] VITALS: BP 109/65
--- NOTE | 2017-05-06 | NUR ---
RESTING IN BED; AROUSES EASILY FOR ASSESSMENT. IV FLUIDS INFUSING INTO RIGHT ARM WITHOUT DIFFICULTY. NO DISTRESS NOTED. CALL LIGHT WITHIN REACH.
[2017-05-06 00:19] LABS: HEMATOCRIT 28.3 % (42.0-52.0)
--- NOTE | 2017-05-06 06:00 | NUR ---
RESTING IN BED WITH EYES CLOSED. CALL LIGHT WITHIN REACH.
[2017-05-06 06:21] LABS: BASO % 0.2 % (0.0-1.0); EOS # 0.5 10*3/uL (0.0-0.4); EOS % 4.1 % (1.0-4.0); HEMATOCRIT 29.6 % (42.0-52.0); HEMOGLOBIN 9.4 g/dl (14.0-18.0); LYMPH # 0.7 10*3/uL (1.3-4.4); LYMPH % 5.7 % (27.0-41.0); MEAN CELL VOLUME 83.6 fl (80.0-94.0); MEAN CORPUSCULAR HGB 26.6 pg (27.0-31.0); MEAN CORPUSCULAR HGB CONC 31.8 g/dl (33.0-37.0); MEAN PLATELET VOLUME 9.4 fl (9.6-12.3); MONO # 0.4 10*3/uL (0.1-1.0); MONO % 3.4 % (3.0-9.0); NEUT % 86.2 % (47.0-73.0); PLATELET COUNT AUTOMATED 437 10*3/uL (130-400); RED BLOOD COUNT 3.54 10*6/uL (4.50-5.90); RED CELL DISTRI WIDTH 18.1 % (0-14.5); WHITE BLOOD COUNT 11.6 10*3/uL (4.8-10.8)
[2017-05-06 06:33] LABS: ALKALINE PHOSPHATASE 190 U/L (45-117); BUN 16 mg/dl (7-24); CHLORIDE 107 mmol/L (98-107); CREATININE 0.68 mg/dL (0.70-1.30); PHOSPHOROUS 3.5 mg/dL (2.5-4.9); POTASSIUM 3.6 mmol/L (3.5-5.1); SGOT/AST 24 IU/L (3-35); SGPT/ALT 18 U/L (12-78); SODIUM 138 mmol/L (136-145); TOTAL PROTEIN 5.4 gm/dL (6.4-8.2)
--- NOTE | 2017-05-06 07:45 | NUR ---
DR. ANDRADE CALLED WITH [facility]. IN MEETING & WOULD LIKE FOR RN TO CALL BACK IN 15 MINUTES; PASSED ON TO DAYLIGHT RN.
[2017-05-06 08:00] VITALS: BP 116/76
--- NOTE | 2017-05-06 08:23 | NUR ---
SPOKE TO DR ANDRADE REGARDING [facility]. PT TO HAVE EGD 05/07/17 AND NPO AT MIDNIGHT TONIGHT.
--- NOTE | 2017-05-06 08:46 | NUR ---
Patient comes from [facility] stay and will require precert to return. OT order is in, will need PT order for precert requirement
--- NOTE | 2017-05-06 09:31 | NUR ---
OFFICE STAFF WAS NOTIFIED OF DR. YEAGER CONSULT. RESPONSE OF NOTIFICATION WAS OK I WILL GIVE IT TO HIM. JOSE MORTON
--- NOTE | 2017-05-06 10:07 | NUR ---
PHYSICAL THERAPY Physical Therapy Evaluation completed this date. See eval document for further details. Will begin PT intervention to address the impairments of muscle weakness, decreased functional mobility I, and inability to ambulate. Recommend d/c back to SNF [place] [address] based on chart review and PT eval. Aisha Herman, PT
--- NOTE | 2017-05-06 10:22 | NUR ---
Occupational Therapy evaluation completed this date on 4 with full eval to follow. Precautions include fall risk, aphasic, resistive of movement, NPO for EGD today, high complexity level 53885, dysphagia; nectar thick liquids, bed alarm, resistive to movement out of bed. Recommend OT per pOC and SNF upon d/t to maximize functional mobility and ADLs. Thank you for this referral Miriam Maciel OTR/Renato
--- NOTE | 2017-05-06 11:23 | NUR ---
OBTAINED CONSENT FOR EGD FROM SON OVER THE PHONE AND TAYE YORK RN WITNESSED.
[2017-05-06 11:54] LABS: HEMATOCRIT 30.8 % (42.0-52.0); HEMOGLOBIN 9.8 g/dl (14.0-18.0)
--- NOTE | 2017-05-06 11:57 | NUR ---
SKIN TEAR ORDER WAS PUT IN A MESSAGE. SO I PUT IN THE SKIN TEAR WOUND ORDER TO CLARIFY IT.
[2017-05-06 12:00] VITALS: BP 111/73
--- NOTE | 2017-05-06 13:30 | NUR ---
INFORMED CONSENT OBTAINED BY TELEPHONE PERMISSION FROM SON WHO IS POA. EXPLAINED LEXISCAN PROTOCOL TO PT. PT ABLE TO ANSWER YES AND NO TO QUESTIONS. RESTING EKG NSR WITH A RESTING HR OF 86 WITH BP OF 118/80. LUNGS CLEAR WITH SPO2 OF 95% ON ROOM AIR. PT COMPLETED A 1:00 LEXISCAN PROTOCOL RECEIVING LEXISCAN0.4 MG IV OVER 10 SECONDS. ANSWERED NO TO QUESTIONS IF ANY CHEST PAIN, NAUSEA OR SHORTNESS OF BREATH. HAD NO EKG CHANGES. HAD A PEAK HR OF 97 WITH BP OF 102/70. LAST RECOVERY HR OF 94 WITH BP OF 102/62. AWAITING SCANNING IN STABLE CONDITION.
--- NOTE | 2017-05-06 14:18 | NUR ---
Patient clincals faxed to [facility] to start precert. Waiting on auth
--- NOTE | 2017-05-06 14:33 | NUR ---
PHYSICAL THERAPY Patient was not in his room at 2:36 pm. Julius Thomason PTA
[2017-05-06 16:00] VITALS: BP 161/83
[2017-05-06 19:29] LABS: HEMATOCRIT 31.9 % (42.0-52.0); HEMOGLOBIN 10.1 g/dl (14.0-18.0)
[2017-05-06 20:00] VITALS: BP 128/89
--- NOTE | 2017-05-06 20:00 | NUR ---
PT. INCONTINENT OF DARK TARRY STOOL. VON CARE PROVIDED BY THIS RN & PA.
--- NOTE | 2017-05-06 22:30 | NUR ---
PT. INCONTINENT OF URINE; COMPLETE BED CHANGE DONE BY RN & PA.
[2017-05-07] VITALS (8 sets, daily range): BP systolic 111–135; BP diastolic 58–89
[2017-05-07 00:17] LABS: HEMOGLOBIN 9.1 g/dl (14.0-18.0)
--- NOTE | 2017-05-07 00:40 | NUR ---
RESTING IN BED WITH EYES CLOSED. IV FLUIDS CONTINUE TO INFUSE WITHOUT DIFFICULTY; SITE ASYMPTOMATIC. CALL LIGHT WITHIN REACH.
--- NOTE | 2017-05-07 06:00 | NUR ---
RESTING IN BED WITH EYES CLOSED. IV FLUIDS CONTINUE TO INFUSE WITHOUT DIFFICULTY; SITE ASYMPTOMATIC. CALL LIGHT WITHIN REACH.
[2017-05-07 06:31] LABS: HEMATOCRIT 29.8 % (42.0-52.0); HEMOGLOBIN 9.4 g/dl (14.0-18.0)
--- NOTE | 2017-05-07 08:00 | NUR ---
RESTING QUIETLY NO C/O NO DISTRESS AT THIS TIME. NPO FOR EGD TODAY. IV FLUIDS INFUSING. SEE SHIFT ASSESSMENT.
--- NOTE | 2017-05-07 10:42 | NUR ---
DR ANDRADE NOTIFIED OF PLATELET ASSEY LEVEL. NO NEW ORDERS OBTAINED.
--- NOTE | 2017-05-07 12:52 | NUR ---
Nurse Director Toma spoke with Mirna at insurance to arrange a peer to peer. The insurance has the worng birthdate still. Toma told them that they (insurance) have the birthdate as [birth year] and that the son Anil Stoll has called multiple times to change it she said she doesn't know why it was not changed. Toma then asked is there no other way to verify the identity as the Insurance has acknowledged his admission by sending a denial for IP but amparo OBS. She said yes there are other ways. Insurance Policy number confirmed, address confirmed. She agreed to set up the Peer to peer for this admission only as I had the "correct" (which is incorrect) and we also verified other identifiers. When asked if we could also readdress the other denial she said unfortunately she could not. The correct is [birth year] as listed on the Hospital records. Agustín Ma called and given members services number [phone] as given by Mirna at the insurance office and requested he try one more time.
--- NOTE | 2017-05-07 13:07 | NUR ---
PHYSICAL THERAPY Tomas seen X 2 today and wanting nothing with his therapy, said NO ! NO ! Couldnot talk him into Ex or sitting up on the side of his bed. YAKOV URIBE ADMINISTRATIVE MANAGER.
--- NOTE | 2017-05-07 15:46 | NUR ---
RETURNED FROM OR. NO C/O NO DISTRESS NOTED.
--- NOTE | 2017-05-07 20:15 | NUR ---
PATIENT RESTING IN BED WITH NO S/S OF DISTRESS. RESPS EASY AND REGULAR. BED IN LOWEST POSITION, BED ALARM ON, CALL LIGHT IN REACH
[2017-05-08] VITALS: BP 127/76
[2017-05-08 08:00] VITALS: BP 103/65
[2017-05-08 10:30] VITALS: BP 122/80
[2017-05-08] MEDS ORDERED: PROTONIX40 MG PO (11:04)
--- NOTE | 2017-05-08 11:45 | NUR ---
PER DR CAO OK TO STOP IVF
--- NOTE | 2017-05-08 11:54 | NUR ---
DISCHARGE WAS PUT IN AND PER CASE MANAGEMENT NOTES PT REQUIRED A PRECERT BEFORE RETURNING TO [facility]. I DID REACH OUT TO THE INSURANCE ASSOCIATE FROM [facility] AND SHE STATED THAT SHE NEVER STARTED IT BECAUSE SHE WAS INFORMED THAT HE WAS HAVING A PROCEDURE YESTERDAY AND DIDN'T THINK HE WOULD RETURN UNTIL WEDNESDAY. DR GOODWIN'S TEAM MADE AWARE.
[2017-05-08 12:00] VITALS: BP 118/75
[2017-05-08 16:00] VITALS: BP 118/81
--- NOTE | 2017-05-08 19:50 | NUR ---
PATIENT RESTING IN BED WITH EYES CLOSED. EASILY ARROUSABLE. RESPS EASY AND REGULAR. NO NEEDS MADE. BED ALARM ON, BED IN LOWEST POSITION, CALL LIGHT IN REACH
[2017-05-08 20:00] VITALS: BP 120/74
--- NOTE | 2017-05-08 22:46 | NUR ---
24 HR chart check completed.
[2017-05-09] VITALS: BP 105/66
--- NOTE | 2017-05-09 04:25 | NUR ---
PATIENT RESTING WITH NO S/S OF DISTRESS. RESPS EASY AND REGULAR. BED IN LOWEST POSITION, CALL LIGHT IN REACH
[2017-05-09 08:24] VITALS: BP 106/68
[2017-05-09 12:52] VITALS: BP 120/67
[2017-05-09 16:00] VITALS: BP 101/73
[2017-05-09 20:00] VITALS: BP 116/78
--- NOTE | 2017-05-09 21:26 | NUR ---
PATIENT TOOK PILLS CRUSHED IN APPLESAUCE IN MOUTH. AFTER PATIENT HAD APPLESAUCE IN MOUTH HE SPIT IT ALL IN THE GARBAGE CAN. UNKNOWN IF ANY MEDICATION WAS SWALLOWED
[2017-05-10] VITALS: BP 118/80
--- NOTE | 2017-05-10 00:10 | NUR ---
PT ASSESSED AND GIVEN MEDICATION AT THIS TIME. NO NEW ABNORMALITIES NOTED, CALL LIGHT IN REACH.
--- NOTE | 2017-05-10 04:00 | NUR ---
PT RESTING IN BED AT THIS TIME, NO S/S OF DISTRESS. RESPIRATIONS EASY AND UNLABORED, CALL LIGHT IN REACH.
--- NOTE | 2017-05-10 04:38 | NUR ---
24 HR chart check completed.
[2017-05-10 08:00] VITALS: BP 118/73
--- NOTE | 2017-05-10 09:52 | NUR ---
PATIENT SEEN 1:1 15 MINUTES OT. IDENTIFIED PATIENT BY NAME AND DATE OF WRIST BAND. PATIENT IN BED WITH BREAKFAST TRAY. PATIENT COMPLETED BILATERAL ROLLING MAX A. PATIENT DEP X 2 PULL SELF UP IN BED FOR INCREASE POSITIONING DURING FEEDING. PATIENT REFUSED BREAKFAST AND PUSHING TRAY AWAY. COMPLETED GROOMING WASH FACE WITH PATIENT DEPENDENT TO COMPLETE. RAMÍREZ CAGE
--- NOTE | 2017-05-10 10:26 | NUR ---
PHYSICAL THERAPY Tomas's breakfast tray in at this time will stop back later. When i stopped back Pt was getting his OT treatment, will stop back later. YAKOV URIBE CHIEF TECHNOLOGY OFFICER.
--- NOTE | 2017-05-10 10:28 | NUR ---
PHYSICAL THERAPY Back this AM 1:1 for Tomas's therapy session, Pt supine in bed. Pt had act assist, and stretching Ex to bilateral UE/LE working in 12 reps each this therapy visit, all but right UE CVA rom, slight stretching. Bilateral LE of heel slides, ankle pumps, hip ABD/ADD, SLR act assist, with act quad sets trace strength. Left UE working act assist all planes to tolerance, right UE passive rom working all planes. Today was Tomas's best, but did not want to try and sit up at bedside. YAKOV URIBE PAPER SLITTER.
--- NOTE | 2017-05-10 11:03 | NUR ---
Faxed updated therapy notes and progress notes for precert to [facility], waiting on auth
[2017-05-10 12:00] VITALS: BP 114/76
[2017-05-10 16:00] VITALS: BP 110/69
--- NOTE | 2017-05-10 18:34 | NUR ---
DR. BALDWIN NOTIFIED OF PT NOT VOIDING FOR MORE THAN 12 HOURS. HE WAS SCANNED AND SHOWED HE HAS 400+ ML IN THE BLADDER. ORDERS ARE TO OBSERVE. IF BLADDERS FILLS OVER 500, HYMAN IS NEEDED.
--- NOTE | 2017-05-10 18:57 | NUR ---
PT URINATED AT THIS TIME AND SOAKED THE BED.
[2017-05-10 20:00] VITALS: BP 113/85
--- NOTE | 2017-05-10 20:00 | NUR ---
PATIENT RESTING IN BED WITH NO S/S OF DISTRESS. RESPS EASY AND REGULAR.BED IN LOWEST POSITION, CALL LIGHT IN REACH
[2017-05-11] VITALS: BP 103/61
[2017-05-11 08:00] VITALS: BP 106/68
--- NOTE | 2017-05-11 08:30 | NUR ---
Patient resting quietly with no c/o discomfort. Respirations easy and regular. Vital signs stable. No overt distress. EVIE VILLEDA R
--- NOTE | 2017-05-11 09:30 | NUR ---
DTI DISCOVERED. WOUND NURSE NOTIFIED. ORDERS TO FOLLOW
--- NOTE | 2017-05-11 09:46 | NUR ---
PHYSICAL THERAPY Patient presented to therapy in supine with difficulty communicating complaints or concerns. Patient AAROM and AROM ther ex in supine including heel slides, quad sets, SLR in flexion, Hip abduction, ankle pumps, and manual calve stretch. Patient refuses to perform supine to sitting at EOB transfer. JERSON Amador was in room working with patient also, who worked with UEs. Patient was 1:1 with this BRIDGE CONSTRUCTION INSPECTOR for 20 minutes total. Julius Thomason BRIDGE CONSTRUCTION INSPECTOR
--- NOTE | 2017-05-11 10:19 | NUR ---
SPEECH PATHOLOGY Screening completed. Patient has a hx of subacute CVA as well as dysphagia with recent MBS revealing jim. for purees and nectar thick liquids. He would benefit from assessment at this time. LENA BARCENAS MSCCC-CHART PICKER
--- NOTE | 2017-05-11 10:35 | NUR ---
Checked with sierra at [facility], still waiting on auth
[2017-05-11 12:00] VITALS: BP 102/52
--- NOTE | 2017-05-11 12:02 | NUR ---
Just received authorization for patient to return to [facility], patient can be discharged today if medically stable
--- NOTE | 2017-05-11 12:18 | NUR ---
Patient is being discharged back to [facility], transportation scheduled for 3PM with [facility]. NH and nursing notified.
--- NOTE | 2017-05-11 12:20 | NUR ---
OPIFOAM GENTLE APPLIED PER ORDERS.
--- NOTE | 2017-05-11 12:46 | NUR ---
Location of the wound: coccyx Type of wound: DTI Size: 1.6cm x 0.7cm x <0.1cm Tunneling: none Undermining: none Sinus Tract: none Presence of Exudate: none Amount: None Color: Purple Odor: None Periwound Skin Appearance: Normal Wound edges: closed Pain (associated with wound): none at time of assessment How does patient state this happened? patient's nurse asked me to evaluate area they found after bathing patient. Wound Care Recommendations: Sureprep to coccyx cover with optifoam gentle daily and prn for soiling.
--- NOTE | 2017-05-11 12:47 | NUR ---
Spoke with Dr. Mcmanus regarding wound care recommendations.
--- NOTE | 2017-05-11 13:09 | NUR ---
PATIENT SEEN 1:1 25 MINUTES.PATIENT IDENTIFIED BY NAME AND DARTE OF . PATIENT IN BED UPON ARRIVAL. PATIENT DECLINED RIGHT SHOULDER PROM SECONDARY GRIMACING AND SHAKING HEAD NO. PATIENT TOLERATED R UE GENTLE PROM ELBOW, WRIST AND HAND 2 SETS X 10 REPS. PATIENT RUE ELEVATED USE PILLOW THIS DATE SECONDARY SWELLING NOTED. PATIENT COMPLETED LUE USE AAROM SHOULDER FLEX/EXT, ELBOW FLEX/EXT, WRIST FLEX/EXT, AND AROM HAND FLEX/EXT 2 SETS X 10 REPS WITH REST BREAKS NO C/O PAIN LUE FOR INCREASE INDEPENDENCE FEEDING. PATIENT DECLINED TRIAL SIT BALANCE EOB THIS DATE SHAKING HEAD NO. PATIENT COMPLETED ACTIVITY TO TOLERANCE. RAMÍREZ ARTHUR/Renato
--- NOTE | 2017-05-11 14:10 | NUR ---
DISCHARGE PHOTOS TAKEN. SKIN TEAR LEFT ARM HEALED.
--- NOTE | 2017-05-11 14:45 | NUR ---
Discharge instructions reviewed with patient/family. Patient receptive and verbalizes understanding. Follow-up care arranged. Written instructions given to patient/family. EVIE VILLEDA
--- NOTE | 2017-05-11 14:48 | NUR ---
SON JULIO CALLED AND NOTIFIED DAD WILL RETURN TO [facility].
--- NOTE | 2017-05-11 15:05 | NUR ---
PT LEFT VIA AMBUALANCE
--- NOTE | 2017-05-11 15:16 | NUR ---
REPORT CALLED TO LEO RAYMUNDO [facility].
--- NOTE | 2017-05-11 16:00 | NUR ---
PHYSICAL THERAPY CO-SIGN I approve of the Phyical Therapy notes written above. HANNAH HALEY PT
--- NOTE | 2017-05-12 07:53 | NUR ---
OCCUPATIONAL THERAPY CO-SIGN I approve of the Occupational Therapy notes written above. JOSE ELIAS BRAVO OTR/Renato
== END 2017-05-11 15:05 | disposition home or self-care (01) | DRG 377 ==
LOC: ED 11:16 → EDHOLD 13:28 → 4E 13:28 → EDBD 05-11 15:05
PROVIDERS: Emergency Medicine; Registered Nurse; ADMIT Internal Medicine
PROC: 0DJ08ZZ Inspection of Upper Intestinal Tract, Via Natural or Artificial Opening Endoscopic (ICD-10-PCS; principal; 2017-05-05)
PROC: 4A02XM4 Measurement of Cardiac Total Activity, External Approach (ICD-10-PCS; 2017-05-06)
PROC: 3E073KZ Introduction of Other Diagnostic Substance into Coronary Artery, Percutaneous Approach (ICD-10-PCS; 2017-05-06)
DX: K29.71 Gastritis, unspecified, with bleeding (principal); E43 Unspecified severe protein-calorie malnutrition; I21.4 Non-ST elevation (NSTEMI) myocardial infarction; G93.40 Encephalopathy, unspecified; Z68.1 Body mass index [BMI] 19.9 or less, adult; J44.9 Chronic obstructive pulmonary disease, unspecified; I25.10 Atherosclerotic heart disease of native coronary artery without angina pectoris; K44.9 Diaphragmatic hernia without obstruction or gangrene; D64.9 Anemia, unspecified; I10 Essential (primary) hypertension; R91.1 Solitary pulmonary nodule; E78.5 Hyperlipidemia, unspecified; F32.9 Major depressive disorder, single episode, unspecified; Z87.891 Personal history of nicotine dependence; Z79.82 Long term (current) use of aspirin; Z86.73 Personal history of transient ischemic attack (TIA), and cerebral infarction without residual deficits; Z79.899 Other long term (current) drug therapy; K20.9 Esophagitis, unspecified

== ENCOUNTER 2017-05-14 10:10 | Emergency (ER) | payer OTHER ==
[~2017-05-14] VITALS: Wt 45.4 kg
[~2017-05-14 10:10] MED LIST changes: +PROTONIX40 MG PO
[2017-05-14 11:02] LABS: BASO % 0.1 % (0.0-1.0); EOS # 0.5 10*3/uL (0.0-0.4); EOS % 6.2 % (1.0-4.0); HEMATOCRIT 27.8 % (42.0-52.0); HEMOGLOBIN 8.7 g/dl (14.0-18.0); LYMPH % 10.9 % (27.0-41.0); MEAN CELL VOLUME 83.7 fl (80.0-94.0); MEAN CORPUSCULAR HGB 26.2 pg (27.0-31.0); MEAN CORPUSCULAR HGB CONC 31.3 g/dl (33.0-37.0); MEAN PLATELET VOLUME 9.6 fl (9.6-12.3); MONO # 0.3 10*3/uL (0.1-1.0); MONO % 3.2 % (3.0-9.0); NEUT % 79.3 % (47.0-73.0); PLATELET COUNT AUTOMATED 399 10*3/uL (130-400); RED BLOOD COUNT 3.32 10*6/uL (4.50-5.90); RED CELL DISTRI WIDTH 20.1 % (0-14.5); WHITE BLOOD COUNT 8.8 10*3/uL (4.8-10.8)
[2017-05-14 11:10] LABS: INTERNATIONAL NORM RATIO 1.1 (2.0-3.5)
[2017-05-14 11:35] LABS: ALKALINE PHOSPHATASE 194 U/L (45-117); BUN 20 mg/dl (7-24); CHLORIDE 108 mmol/L (98-107); CREATININE 0.88 mg/dL (0.70-1.30); LIPASE 77 U/L (73-393); POTASSIUM 2.9 mmol/L (3.5-5.1); SGOT/AST 21 IU/L (3-35); SGPT/ALT 18 U/L (12-78); SODIUM 144 mmol/L (136-145)
== END 2017-05-14 18:25 | disposition short-term general hospital (02) ==
LOC: EDBD 10:10 → ED 10:10
PROVIDERS: Physician Assistant
DX: R41.82 Altered mental status, unspecified (principal)